=== PATIENT | female | born 1985 | race Asian ===

== ENCOUNTER 2021-01-08 07:20 | Inpatient (IN) | payer OTHER ==
[2021-01-08] MEDS ORDERED: MAGNESIUM SULFATE 20GM/500ML - 20 GM/500 ML INFUS.BAG ONE (07:58)
[2021-01-08] MEDS ORDERED: MAGNESIUM 4GM/H20 - 4 GM/100 ML IVPB IVPB SCH (08:00)
[2021-01-08] MEDS ORDERED: ELECTROLYTE-148 SOLN 500 ML IV ONE (08:18)
[2021-01-08] MEDS ORDERED: ELECTROLYTE-148 SOLN 1,000 ML IV SCH (08:30)
[2021-01-08] MEDS ORDERED: MAGNESIUM SULFATE 20GM/500ML - 20 GM/500 ML INFUS.BAG IVPB SCH (08:30)
[2021-01-08 08:48] VITALS: BMI 33.3
[2021-01-08 08:48] LABS: HEMATOCRIT 36.6 % (32.4-45.2); HEMOGLOBIN 12.3 GM/dL (10.7-15.3); MCH 28.3 pg (25.7-33.7); MCHC 33.7 g/dl (32.0-36.0); MEAN PLT VOLUME 9.7 fl (7.5-11.1); PLATELET COUNT 244 10^3/uL (134-434); RBC 4.35 M/mm3 (3.60-5.2); WHITE BLOOD COUNT 17.2 K/mm3 (4.0-10.0)
[2021-01-08 08:58] LABS: INR 0.88 (0.83-1.09); PROTHROMBIN TIME (PATIENT) 9.8 SEC (9.7-13.0)
[2021-01-08 09:01] LABS: ACTIVATED PTT 25.7 SECONDS (25.2-36.5)
[2021-01-08 09:22] LABS: ALBUMIN 2.3 g/dl (3.4-5.0); BLOOD UREA NITROGEN 7.9 mg/dL (7-18); CALCIUM 8.5 mg/dL (8.5-10.1)
[2021-01-08 09:24] LABS: EPI CELLS 10 /uL (0-25.1); HYALINE CASTS 0 /uL (0-3.1); URINE APPEARANCE CLEAR; URINE BACTERIA 132 /uL (0-1359); URINE BILIRUBIN NEGATIVE (NEGATIVE); URINE COLOR YELLOW; URINE GLUCOSE (UA) NEGATIVE (NEGATIVE); URINE KETONE NEGATIVE (NEGATIVE); URINE LEUK ESTERASE TRACE (NEGATIVE); URINE NITRITE NEGATIVE (NEGATIVE); URINE PROTEIN NEGATIVE (NEGATIVE); URINE RBC 0 /uL (0-23.9); URINE UROBILINOGEN 0.2 mg/dL (0.2-1.0); URINE WBC 11 /uL (0-25.8)
[2021-01-08 09:25] LABS: CREATININE 0.4 mg/dL (0.55-1.3); URIC ACID 4.7 mg/dL (2.6-7.2)
[2021-01-08 09:27] LABS: BILIRUBIN,TOTAL 0.7 mg/dL (0.2-1); TOT PROT 5.9 g/dl (6.4-8.2)
[2021-01-08 09:34] LABS: ANISOCYTOSIS 0; HELMET CELLS 0; HOWELL-JOLLY BODIES 0; MACROCYTOSIS 0; OVALOCYTE 0; PLATELET ESTIMATE NORMAL; ROULEAU 0; SICKELED CELLS 0; TARGET CELLS 0; TEAR DROP CELLS 0; TOXIC GRANULATION 0
[2021-01-08] MEDS ORDERED: CITRIC ACID/SODIUM CITRATE 30 ML UNIT-DOSE CUP PO ONE (10:18)
[2021-01-08] MEDS ORDERED: morphine SULFATE (PF) 1 MG/2 ML SYRINGE ONE (10:18)
[2021-01-08] MEDS ORDERED: ceFAZolin SODIUM 1 GM VIAL ONE ×2 (11:26→17:46)
[2021-01-08] MEDS ORDERED: OXYTOCIN 10 UNIT/ML 10ML MDV ONE (11:26)
[2021-01-08] MEDS ORDERED: EPINEPHrine/PF 1 MG/1 ML (1:1,000) AMPULE ONE (11:26)
[2021-01-08] MEDS ORDERED: KETOROLAC TROMETHAMINE 30 MG/1 ML VIAL ONE (11:26)
[2021-01-08] MEDS ORDERED: ONDANSETRON 4 MG/2 ML VIAL ONE (11:26)
[2021-01-08 11:36] LABS: CORD BASE EXCESS -1.9 mmol/L (0-2); CORD HCO3 23.7 mmHg (20-29); CORD PCO2 43.8 mmHg (30-78); CORD pH 7.352 (7.14-7.44)
[2021-01-08 11:41] LABS: CORD BASE EXCESS -2.5 mmol/L (0-2); CORD HCO3 23.9 mmHg (20-29); CORD PCO2 47.6 mmHg (30-78); CORD pH 7.319 (7.14-7.44)
[2021-01-08] MEDS ORDERED: morphine SULFATE/PF 1 MG/2 ML (2cc Syringe - QUVA) EP ONE (12:01)
[2021-01-08] MEDS ORDERED: ACETAMINOPHEN 1000 MG/100 ML VIAL IVPB ONE (12:02)
[2021-01-08] MEDS ORDERED: SENNOSIDES/DOCUSATE COMBO (SENNA PLUS) TABLET (UD) PO PRN (12:09)
[2021-01-08] MEDS ORDERED: oxyCODONE HCL 5 MG TABLET PO PRN (12:09)
[2021-01-08] MEDS ORDERED: METHYLERGONOVINE MALEATE 0.2 MG/1 ML AMP IM PRN (12:09)
[2021-01-08] MEDS ORDERED: ACETAMINOPHEN INJECTION 100 ML IVPB ONE (12:13)
[2021-01-08] MEDS ORDERED: OXYTOCIN 20 UNITS in 0.9% NS 20 UNIT/1,000 ML INFUS.BAG IV SCH (12:15)
[2021-01-08] MEDS ORDERED: DEXTROSE 5%-WATER - 50 ML IVPB ONE (17:46)
[2021-01-08] MEDS: FERROUS SO4 325 MG TABLET (FP) PO SCH (17:48)
[2021-01-08] MEDS: CEFAZOLIN 1 GM in DEXTROSE 5%-WATER - 50 ML IVPB SCH (17:51)
[2021-01-08] MEDS: ACETAMINOPHEN 1000 MG/100 ML VIAL IVPB PRN (20:13)
[2021-01-09] MEDS: ACETAMINOPHEN 1000 MG/100 ML VIAL IVPB PRN (01:23)
[2021-01-09] MEDS ORDERED: ceFAZolin SODIUM 1 GM VIAL ONE ×2 (01:31→09:35)
[2021-01-09] MEDS ORDERED: DEXTROSE 5%-WATER - 50 ML IVPB ONE ×2 (01:31→09:35)
[2021-01-09] MEDS: CEFAZOLIN 1 GM in DEXTROSE 5%-WATER - 50 ML IVPB SCH ×2 (02:00→09:38)
[2021-01-09 08:47] LABS: BASO % 0.2 % (0-2.0); EOS % 0.9 % (0-4.5); HEMATOCRIT 32.4 % (32.4-45.2); MEAN CELL VOLUME 85.2 fl (80-96); MONO % 5.9 % (3.8-10.2); PLATELET COUNT 217 10^3/uL (134-434); WHITE BLOOD COUNT 14.9 K/mm3 (4.0-10.0)
[2021-01-09] MEDS: SIMETHICONE 80 MG TAB.CHEW (FP) PO PRN ×3 (08:50→23:50)
[2021-01-09] MEDS: IBUPROFEN 600 MG TABLET (FP) PO PRN ×3 (08:50→23:50)
[2021-01-09] MEDS: FERROUS SO4 325 MG TABLET (FP) PO SCH ×2 (09:38→18:11)
[2021-01-09] MEDS: PRENATAL VITAMINS W/ FOLIC ACID TABLET (FP) PO SCH (09:38)
[2021-01-09] MEDS ORDERED: BISACODYL 10 MG SUPP.RECT RC PRN (12:09)
[2021-01-10] MEDS: FERROUS SO4 325 MG TABLET (FP) PO SCH ×2 (11:02→18:16)
[2021-01-10] MEDS: PRENATAL VITAMINS W/ FOLIC ACID TABLET (FP) PO SCH (11:02)
[2021-01-10] MEDS: SIMETHICONE 80 MG TAB.CHEW (FP) PO PRN (12:25)
[2021-01-10] MEDS: IBUPROFEN 600 MG TABLET (FP) PO PRN ×2 (12:25→20:53)
[2021-01-11 07:24] LABS: BASO % 0.1 % (0-2.0); EOS % 2.8 % (0-4.5); HEMATOCRIT 33.2 % (32.4-45.2); HEMOGLOBIN 11.1 GM/dL (10.7-15.3); MCH 28.7 pg (25.7-33.7); MCHC 33.4 g/dl (32.0-36.0); MEAN CELL VOLUME 85.9 fl (80-96); MEAN PLT VOLUME 9.8 fl (7.5-11.1); MONO % 5.5 % (3.8-10.2); NEUT % 65.6 % (42.8-82.8); PLATELET COUNT 259 10^3/uL (134-434); RBC 3.86 M/mm3 (3.60-5.2); RDW 14.2 % (11.6-15.6); WHITE BLOOD COUNT 14.1 K/mm3 (4.0-10.0)
[2021-01-11 08:39] VITALS: TEMP 98.5
[2021-01-11] MEDS: SIMETHICONE 80 MG TAB.CHEW (FP) PO PRN (09:56)
[2021-01-11] MEDS: FERROUS SO4 325 MG TABLET (FP) PO SCH (09:56)
[2021-01-11] MEDS: PRENATAL VITAMINS W/ FOLIC ACID TABLET (FP) PO SCH (09:56)
[2021-01-11] MEDS ORDERED: NIFEdipine 10 MG CAPSULE (FP) PO ONE (11:45)
[2021-01-11] MEDS ORDERED: NIFEdipine 10 MG CAPSULE (FP) ONE (11:49)
[2021-01-11] MEDS: IBUPROFEN 600 MG TABLET (FP) PO PRN (11:55)
[2021-01-11 12:58] VITALS: BP 133/78; PULSE 105
== END 2021-01-11 14:55 | disposition home or self-care (01) | DRG 540 ==
LOC: JDEL 07:20 → JLDR 08:00 → J3W 13:15
PROVIDERS: ADMIT Obstetrics & Gynecology; ATTEND Obstetrics & Gynecology
PROC: 10D00Z1 Extraction of Products of Conception, Low, Open Approach (ICD-10-PCS; principal; 2021-01-08)
PROC: 0DNW0ZZ Release Peritoneum, Open Approach (ICD-10-PCS; 2021-01-08)
DX: O34.211 Maternal care for low transverse scar from previous cesarean delivery (principal); O60.14X0 Preterm labor third trimester with preterm delivery third trimester, not applicable or unspecified; O45.93 Premature separation of placenta, unspecified, third trimester; O24.420 Gestational diabetes mellitus in childbirth, diet controlled; O10.92 Unspecified pre-existing hypertension complicating childbirth; O99.214 Obesity complicating childbirth; E66.9 Obesity, unspecified; N73.6 Female pelvic peritoneal adhesions (postinfective); Z3A.32 32 weeks gestation of pregnancy; Z37.0 Single live birth
CPT/HCPCS: 36415; 36600; 59025; 80053; 81003; 82570; 82803; 82962; 84156; 84550; 85025; 85362; 85610; 85730; 86780; 86900; 86922; 88307-TC; 94010; C9803; G0463-25; J0131; U0003; U0005